=== PATIENT | female | born 1930 | race Caucasian/White ===

== ENCOUNTER → 2016-08-14 | Outpatient (CLI) | payer MEDICARE, OTHER ==
[~2016-08-14] MED LIST: ACTOS PO; ASPIRIN PO; AUGMENTIN PO; BACTRIM DS TABL1 TA1; BACTRIM DS TABL1 TA2 PO; LIPITOR PO; LISINOPRIL PO; LOPRESSOR PO; NEXIUM PO; NORVASC PO
--- NOTE | ~2016-08-14 | MY24 ---
[facility] A Service of [facility] RADIOLOGY TEXT RESULTS PATIENT: ISI VÁSQUEZ LOCATION: [facility] : 28 UNIT #: [id number] AGE: [address]: Duong Hinton MD SEX: F ORDER DR: [id number] [facility] [address] [place], [place] [address] [id number] O MR#: [id number] Acc #: [id number] NAME: ISI VÁSQUEZ : 1930 SEX: F STUDY DATE/TIME: 08/14/2016 14:51 UNIT: [facility] ROOM: STUDY DESCRIPTION: MY ALICIA DIAG W/ CAD UNI LT Attending Physician: Duong Hinton M.D. Ordering Physician: Duong Hinton M.D. Primary Care Physician: Duong Hinton M.D. MEDICAL IMAGING REPORT This report is preliminary unless electronic signature is present EXAM Left digital diagnostic mammogram INDICATION Right breast cancer post mastectomy. Left breast followup. PROCEDURE CC and MLO views of the left breast obtained on a digital mammography unit, FDA-approved CAD device utilized. COMPARISON 07/07/2015 FINDINGS Scattered fibroglandular density. There is no dominant mass or suspicious calcification. IMPRESSION Negative left diagnostic mammogram. Recommend yearly follow up. Patients over the age of 40 are entered into a reminder system with target due date for the next mammogram. A result letter will also be sent to the patient. BIRADS: 1 Negative Dictated by... Will Chisholm M.D. THIS IS AN ELECTRONICALLY VERIFIED REPORT Will Chisholm M.D. at 09/11/2016 8:21 AM [facility] A Service [facility] RADIOLOGY TEXT RESULTS PATIENT: ISI VÁSQUEZ LOCATION: [facility] : [birth year] UNIT #: [id number] AGE: [address]: Duong Hinton MD SEX: F ORDER DR: CARLIE/bala TD: 08/14/2016 23:05 JOB #: [id number] MEDICAL IMAGING REPORT Page 1 of 1 COPY
== END | disposition home or self-care (01) ==
LOC: CMAM 14:27
DX: Z09 Encounter for follow-up examination after completed treatment for conditions other than malignant neoplasm (principal); Z90.11 Acquired absence of right breast and nipple; Z85.3 Personal history of malignant neoplasm of breast
CPT/HCPCS: G0206